=== PATIENT | female | born 1960 | race Caucasian/White ===

== ENCOUNTER 2018-11-06 07:54 | Day surgery (SDC) | payer OTHER ==
[~2018-11-06] VITALS: Ht 167.6 cm; Wt 90.7 kg
[~2018-11-06 07:54] MED LIST: ADVIL200 MG PO; CHANTIX1 MG PO; LIPITOR20 MG PO; LISINOPRIL10 MG PO; METHOCARBAMOL500 MG PO
--- NOTE | 2018-11-06 10:16 | NUR ---
11/06/18 1016 Rosey Grant 1006 PATIENT ARRIVES TO PACU AWAKE, BUT DROWSY. RESP EVEN AND UNLABORED, ROOM AIR SATS >95%. [address] BEDSIDE. DR RODRIGUEZ TALKING WITH PATIENT AND FAMILY. 1015 PATIENT TAKING SIPS OF WATER. DENIES PAIN OR NAUSEA. PASSING GAS.
--- NOTE | 2018-11-06 18:54 | OR ---
[facility] [address] [place] [address] Signed DATE OF OPERATION: 11/06/2018 SURGEON: Ursula Rodriguez MD PREOPERATIVE DIAGNOSIS: Colon screening. POSTOPERATIVE DIAGNOSIS: Extensive diverticulosis. PROCEDURE: Total colonoscopy to cecum. ANESTHESIA: Intravenous sedation, fentanyl 100 mcg, Versed 4 mg. INDICATIONS: This 58-year-old white woman is a patient of Dr. Harpreet Carty, who is here for screening colonoscopy. She has no family history of colon cancer and no current symptoms of bleeding diarrhea or constipation. She did undergo cholecystectomy in 2012 at some point having loose stools, but not an issue currently. She was admitted at this time to undergo screening colonoscopy understanding the risks of bleeding, infection, and perforation. FINDINGS: The colon was very well prepped. Complete colonoscopy was undertaken to the cecum without question. There were numerous diverticula extending from the sigmoid up to and including the right colon, but less in amount in the more proximal colon. There was no evidence of polyps or colitis, stricture, or other abnormality. DESCRIPTION OF PROCEDURE: The patient was brought to the endoscopy suite and placed in lateral decubitus position given intravenous sedation to the point of slurred speech and nystagmus. Digital rectal examination was normal. An Olympus video colonoscope was passed in the rectum and manipulated throughout the colon. The prep was notably quite good. Scope was ultimately passed to the cecum and intubation of the cecum was accomplished without problem. The ileocecal valve was normal. Appendiceal orifice was normal as well. Upon withdrawal of scope, there were diverticula noted throughout the colon including the right side and transverse the most dominantly left and sigmoid areas. There was no sign of stricture. Certainly, no polyps and no colitis. Retroflexed view of the rectum was Electronically Signed By: URSULA RODRIGUEZ MD 11/06/18 1854 PATIENT NAME: SHARONA HAND OPERATIVE REPORT DATE OF : 64 REPORT #: [id number] PHYSICIAN: URSULA RODRIGUEZ MD PCP: DENI CARTY MD REPORT IS CONFIDENTIAL AND NOT TO BE RELEASED WITHOUT AUTHORIZATION [facility] [address], [place] [address] Signed normal as well. The scope was removed. The patient was taken to recovery room in good condition. CONCLUDING DIAGNOSIS: Diverticulosis, otherwise normal. PLAN: Recommend repeat colonoscopy in 10 years, sooner if clinically indicated. Recommend high-fiber diet otherwise. She will return to the ongoing care of Dr. Carty. MD MALDONADO Garland/JULIÁNL /[id number] cc: Deni Carty MD Copies: DENI CARTY MD ~ Electronically Signed By: URSULA RODRIGUEZ MD 11/06/18 1854 PATIENT NAME: SHARONA HAND OPERATIVE REPORT DATE OF : 64 REPORT #: [id number] PHYSICIAN: URSULA RODRIGUEZ MD PCP: DENI CARTY MD REPORT IS CONFIDENTIAL AND NOT TO BE RELEASED WITHOUT AUTHORIZATION
== END 2018-11-06 10:35 | disposition home or self-care (01) ==
LOC: OPS 07:54 → DS 07:54 → OPS 09:30 → DS 10:00 → OPS 10:00
PROVIDERS: Surgery
PROC: 0DJD8ZZ Inspection of Lower Intestinal Tract, Via Natural or Artificial Opening Endoscopic (ICD-10-PCS; principal; 2018-11-06 09:30)
DX: Z12.11 Encounter for screening for malignant neoplasm of colon (principal); K57.30 Diverticulosis of large intestine without perforation or abscess without bleeding; G47.33 Obstructive sleep apnea (adult) (pediatric); Z90.49 Acquired absence of other specified parts of digestive tract; Z86.001 Personal history of in-situ neoplasm of cervix uteri
CPT/HCPCS: 99153; G0500; J2250; J3010; J7120

== ENCOUNTER 2024-05-25 06:04 | Day surgery (SDC) | payer OTHER ==
[~2024-05-25] VITALS: Ht 167.6 cm; Wt 93.2 kg
[~2024-05-25 06:04] MED LIST changes: +LACTATED RINGER'S 1,000 ML IV SCH
[2024-05-25 06:28] VITALS: BP 134/87
[2024-05-25] MEDS ORDERED: FLONASE ALLERG9.9 ML NAS (06:31)
[2024-05-25] MEDS ORDERED: FLONASE NIGHTT2.5 MG PO (06:31)
[2024-05-25] MEDS ORDERED: LIDOCAINE 1% W/ EPI 1:100,000 20 ML MDV ONE (06:31)
[2024-05-25] MEDS ORDERED: GABARONE100 MG PO (06:31)
[2024-05-25 06:54] LABS: BASOPHILS 0.8 % (0-2); BASOPHILS, ABSOLUTE 0 %; EOSINOPHILS 3.1 % (0-6); EOSINOPHILS, ABSOLUTE 0.2; HEMATOCRIT 42.1 % (35.0-50.0); HEMOGLOBIN 14.3 g/dL (12.0-18.0); LYMPHOCYTES 36.6 % (24-44); MCH 29.1 (27-36); MCHC 33.9 g/dl (30-36); MCV 85.8 fl (81-99); MONOCYTES 8.7 % (0-12); MONOCYTES, ABSOLUTE 0.5; NEUTROPHILS 50.8 % (39-80); NEUTROPHILS, ABSOLUTE 2.7; PLATELET COUNT 294 K/uL (140-440); RBC 4.91 M/ul (4.3-5.7); RDW 13.7 (10.5-15.0)
[2024-05-25] MEDS ORDERED: OXYMETAZOLINE HCL 30 ML BTL NAS SCH (07:00)
[2024-05-25] MEDS ORDERED: LIDOCAINE HCL 1% 5 ML SDV INJ ONE (07:00)
[2024-05-25] MEDS ORDERED: IBLOOD GLUCOSE TEST STRIP 1 EA TEST VI PRN ×2 (07:00→08:00)
[2024-05-25] MEDS ORDERED: CEFAZOLIN SODIUM 1 GM/10 ML SYR IV SCH (07:00)
[2024-05-25] MEDS ORDERED: DEXAMETHASONE SOD PHOS 4 MG/ML VIAL ONE (07:01)
[2024-05-25] MEDS ORDERED: ACETAMINOPHEN 1,000 MG/100 ML VIAL ONE (07:01)
[2024-05-25] MEDS ORDERED: MIDAZOLAM HCL 2 MG/2 ML VIAL ONE (07:01)
[2024-05-25] MEDS ORDERED: propofoL 200 MG/20 ML VIAL ONE (07:01)
[2024-05-25] MEDS ORDERED: ondansetron HCL 4 MG/2 ML VIAL ONE (07:01)
[2024-05-25] MEDS ORDERED: LIDOCAINE HCL 2% 5 ML SDV ONE (07:01)
[2024-05-25] MEDS ORDERED: fentaNYL citrate 100 MCG/2 ML VIAL ONE (07:01)
[2024-05-25 07:07] LABS: ALBUMIN 3.3 g/dL (3.4-5.0); ALBUMIN/GLOBULIN RATIO 0.89 (1.1-2.4); ANION GAP 11.9 (7-21); BILIRUBIN, TOTAL 0.3 mg/dL (0.2-1.0); BUN/CREATININE RATIO 30.76 (6.0-28.6); CALCIUM 8.8 mg/dL (8.5-10.1); CREATININE, SERUM 0.91 mg/dL (0.55-1.02); POTASSIUM 3.9 mmol/L (3.5-5.1)
--- NOTE | 2024-05-25 07:37 | NUR ---
PT NOT AVAILABLE FOR VISIT. PROVIDED PRAYER.
[2024-05-25] MEDS ORDERED: droPERidol 5 MG/2 ML VIAL IV PRN (08:00)
[2024-05-25] MEDS ORDERED: PROCHLORPERAZINE EDISYLATE 10 MG/2 ML VIAL IV PRN (08:00)
[2024-05-25] MEDS ORDERED: HYDROmorphone HCL 1 MG/ML SYR IV PRN (08:00)
[2024-05-25] MEDS ORDERED: ondansetron HCL 4 MG/2 ML VIAL IV PRN (08:00)
[2024-05-25] MEDS ORDERED: fentaNYL citrate 50 MCG/ML SDV IV PRN (08:00)
[2024-05-25] MEDS ORDERED: NALOXONE HCL 0.4 MG SYR IV PRN (08:00)
--- NOTE | 2024-05-25 08:38 | NUR ---
05/25/24 0838 SamPau maguire 0803 PT ARRIVED IN PACU NON RESPONSIVE TO NOXIOUS STIMULI WITH OPA IN PLACE. CHIN LIFT HELD BY RN. 0807 PT REACTIVE. OPA REMOVED. 0815 C/O SINUS PAIN 09/26. FENTANYL 25MCG GIVEN IV. 0820 SNORING. REU. 0827 PT AWAKE AND C/O SINUS PAIN 08/26. FENTANYL 25MCG GIVEN IV. 0837 SNORING. REU.
[2024-05-25 08:45] VITALS: BP 188/86
[2024-05-25] MEDS ORDERED: HYDROCODONE/ACETA 5/325 TAB PO PRN (08:45)
--- NOTE | 2024-05-25 08:57 | NUR ---
3284 PT ARRIVED TO DAY SURGERY FROM PACU VIA STREACHER. PT DROWSEY, BUT ORIENTED. PT REPORTS 7/10 PAIN AT THIS TIME, DISCUSSED PLAN FOR PAIN MEDICATIONS. PT HAS BEEN TOLERATING PO WATER. VITALS TAKEN. IV ASSESSED. PT HAS DAUGHTER IN ROOM AT BEDSIDE. CALL LIGHT WITHIN REACH, AND BED IS LOW AND LOCKED. PT HAS PUDDING AT BEDSIDE.
--- NOTE | 2024-05-25 09:10 | NUR ---
0844 PT HAS PACKING IN PLACE IN NARES, PT HAS PACKING IN PLACE WRISTBAND ON LEFT WRIST.
[2024-05-25 09:41] VITALS: BP 157/82
--- NOTE | 2024-05-25 10:44 | NUR ---
0940 HOURLY ROUNDING DONE, VITALS TAKEN. IV ASSESSED. PT REPORTS TOLERABLE 6/10 PAIN. PT REPORTS THE NEED TO URINATE. 0950 PT AMBULATED TO THE BATHROOM AND VOIDED 300 MLS OF CLEAR YELLOW URINE. PT ABLE TO AMBULATE BACK TO ROOM WITH STEADY GAIT. 0953 DISCHARGE INFORMATION GONE OVER WITH PT AND DAUGHTER. NO QUESTIONS AT THIS TIME. IV DISCONTINUED FOR DISCHARGE. PT GETTING DRESSED WITH DAUGHTERS ASSISTANCE. 1000 PT DISCHARGED FROM DAY SURGERY VIA WHEELCHAIR TO THE FRONT OF THE HOSPITAL TO DAUGHTER'S CAR. PT HAS DISHCARGE INFO, PRESCRIPTION AND DRIP PAD SUPPLIES. DRIP PAD PLACED BEFORE DISCHARGING PATIENT.
--- NOTE | 2024-05-25 11:10 | OR ---
[facility] [address] [place], [place] [address] Signed DATE OF OPERATION: 05/25/2024 SURGEON: Jame Meier MD PREOPERATIVE DIAGNOSIS: Nasal obstruction due to septal deformity and inferior turbinate hypertrophy. POSTOPERATIVE DIAGNOSIS: Nasal obstruction due to septal deformity and inferior turbinate hypertrophy. PROCEDURE: Septoplasty, cautery bilateral inferior turbinates, transmucosal. ANESTHESIA: General, LMA; FINANCIAL SALES ADVISOR, Harpreet PREOP HISTORY: Yvette is a 63-year-old lady with chronic nasal obstruction. She is attempting to use CPAP for obstructive sleep apnea without much success due to the nasal obstruction, this has been unresponsive to appropriate medications. Exam in the office showed septal deformity, which was obstructive inferior turbinate hypertrophy. Sinus CT was negative. Otherwise, the patient was taken to the operating for the above-mentioned procedures. OPERATIVE PROCEDURE AND FINDINGS: After informed consent, the patient was taken to the operating room, placed in supine position, where general LMA anesthesia was induced. The patient and procedure were verified. The patient received preoperative intranasal oxymetazoline and intravenous Ancef. Headlight speculum exam of the nasal cavity showed hypertrophic turbinates, partially decongested. The septum was deviated bilaterally spurs inferiorly. A 1% lidocaine with epi was injected in the septal mucosa bilaterally. The deviated septal bone and cartilage was then excised with the Jing. Airway was improved in this manner. Inferior turbinates were then cauterized starting on the left with long handle needle point cautery. Multiple transmucosal passes on the medial and inferior surface of the inferior turbinate starting anteriorly extending all the way back posteriorly. Excellent shrinkage in the turbinate and improvement in the airway. Hemostasis verified. The same procedure on the right inferior turbinate. Packing was then placed, one piece of Merocel trimmed each side coated with Neosporin tied anteriorly over a pad. The pharynx was suctioned clear of blood and secretions. The patient was then Electronically Signed By: JAME MEIER MD 05/25/24 1110 PATIENT NAME: YVETTE HAND OPERATIVE REPORT DATE OF : 64 REPORT #: [id number] PHYSICIAN: JAME MEIER MD PCP: ERIKA CARR MD REPORT IS CONFIDENTIAL AND NOT TO BE RELEASED WITHOUT AUTHORIZATION [facility] [address] [place] [id number] Signed awakened, extubated, and transported to the recovery room in good condition. No complications. BLOOD LOSS: Minimal. SPECIMEN: No specimens. DRAINS: No drains. PACKING: One piece of Merocel each nostril. Jame Meier MD GC/MODL /[id number] Copies: ~ Electronically Signed By: JAME MEIER MD 05/25/24 1110 PATIENT NAME: YVETTE HAND OPERATIVE REPORT DATE OF : 64 REPORT #: [id number] PHYSICIAN: JAME MEIER MD PCP: ERIKA CARR MD REPORT IS CONFIDENTIAL AND NOT TO BE RELEASED WITHOUT AUTHORIZATION
--- NOTE | 2024-05-25 12:20 | EKG ---
[facility] [address] [place] [address] Signed Sinus rhythm with premature atrial complexes Right bundle branch block Abnormal ECG No previous ECGs available Confirmed by David Puentes MD () on 05/25/2024 12:20:02 PM Electronically Signed By: DAVID PUENTES MD 05/25/24 1220 PATIENT NAME: SHARONA HAND Electrocardiogram DATE OF : 64 PHYSICIAN: DAVID PUENTES MD REPORT #: [id number] REPORT IS CONFIDENTIAL AND NOT TO BE RELEASED WITHOUT AUTHORIZATION
[2024-05-25] MEDS ORDERED: SEVOFLURANE 250 ML BTL INH ONE (16:29)
== END 2024-05-25 10:00 | disposition home or self-care (01) ==
LOC: DS 06:04
PROVIDERS: Nurse Anesthetist, Certified Registered; ATTEND Otolaryngology
PROC: 09BM0ZZ Excision of Nasal Septum, Open Approach (ICD-10-PCS; principal; 2024-05-25 07:30)
DX: J34.3 Hypertrophy of nasal turbinates (principal); J34.2 Deviated nasal septum; G47.33 Obstructive sleep apnea (adult) (pediatric); M26.649 Arthritis of unspecified temporomandibular joint; Z99.89 Dependence on other enabling machines and devices
CPT/HCPCS: 00160; 36415; 80053; 85025; 93005; 93010; J0131; J0690; J1100; J2003; J2250; J2405; J2704; J3010; J7121